=== PATIENT | female | born 1995 | race Two or more races ===

== ENCOUNTER 2020-09-13 21:00 | Emergency (ER) | payer OTHER ==
[~2020-09-13] VITALS: Ht 162.6 cm; Wt 52.2 kg
[2020-09-14] MEDS ORDERED: NAPROXEN375 MG PO (02:36)
== END 2020-09-14 02:42 | disposition home or self-care (01) ==
LOC: ER 21:00
DX: N83.291 Other ovarian cyst, right side (principal); R10.2 Pelvic and perineal pain